=== PATIENT | male | born 1945 | race Native Hawaiian/Other Pacific Islander ===

== ENCOUNTER 2016-08-22 07:55 | Day surgery (SDC) | payer OTHER, BC ==
[~2016-08-22] VITALS: Ht 165.1 cm; Wt 68.0 kg
== END 2016-08-22 10:25 | disposition home or self-care (01) ==
LOC: OR 07:55
PROC: 0D728ZZ Dilation of Middle Esophagus, Via Natural or Artificial Opening Endoscopic (ICD-10-PCS; principal; 2016-08-22)
PROC: 0DB58ZZ Excision of Esophagus, Via Natural or Artificial Opening Endoscopic (ICD-10-PCS; 2016-08-22)
PROC: 0DB68ZZ Excision of Stomach, Via Natural or Artificial Opening Endoscopic (ICD-10-PCS; 2016-08-22)
DX: K22.2 Esophageal obstruction (principal); K29.60 Other gastritis without bleeding; K20.8 Other esophagitis; R13.19 Other dysphagia
CPT/HCPCS: J2001; J2704

== ENCOUNTER 2018-10-17 12:08 | Outpatient (CLI) | payer OTHER, BC ==
[2018-10-17 12:54] LABS: PLATELET COUNT 205 K/uL (142-355)
[2018-10-17 13:27] LABS: POTASSIUM 3.7 mmol/L (3.6-5.2)
== END 2018-10-17 19:14 | disposition home or self-care (01) ==
LOC: LABW 12:08
PROVIDERS: Nurse Practitioner
DX: R53.83 Other fatigue (principal); I10 Essential (primary) hypertension; E11.9 Type 2 diabetes mellitus without complications; Z79.899 Other long term (current) drug therapy; N40.0 Benign prostatic hyperplasia without lower urinary tract symptoms; E55.9 Vitamin D deficiency, unspecified; R53.82 Chronic fatigue, unspecified
CPT/HCPCS: 36415; 80053; 80061; 82043; 82306; 82570; 82607; 83036; 84154; 84443; 85027; 87522

== ENCOUNTER 2019-02-26 07:53 | Day surgery (SDC) | payer OTHER, BC ==
[2019-02-26 08:22] LABS: PLATELET COUNT 213 K/uL (142-355)
[2019-02-26 08:34] LABS: POTASSIUM 4.1 mmol/L (3.6-5.2)
== END 2019-02-26 11:26 | disposition home or self-care (01) ==
LOC: OR 07:53
PROVIDERS: Student in an Organized Health Care Education/Training Program
PROC: 0DB58ZZ Excision of Esophagus, Via Natural or Artificial Opening Endoscopic (ICD-10-PCS; principal; 2019-02-26)
PROC: 0DB68ZZ Excision of Stomach, Via Natural or Artificial Opening Endoscopic (ICD-10-PCS; 2019-02-26)
PROC: 0D758ZZ Dilation of Esophagus, Via Natural or Artificial Opening Endoscopic (ICD-10-PCS; 2019-02-26)
DX: K22.2 Esophageal obstruction (principal); K29.50 Unspecified chronic gastritis without bleeding; K25.9 Gastric ulcer, unspecified as acute or chronic, without hemorrhage or perforation; K44.9 Diaphragmatic hernia without obstruction or gangrene; K21.0 Gastro-esophageal reflux disease with esophagitis; R13.19 Other dysphagia
CPT/HCPCS: 80053; 85027; J2001; J2250; J2704